=== PATIENT | female | born 1990 ===

== ENCOUNTER → 2017-03-19 | Outpatient (CLI) | payer OTHER ==
[~2017-03-19] MED LIST: ACET325 PO; AMOX500 PO; IBUP800 PO; Keflex500 MG PO; OMEP20ER PO; OMEPRAZOLE MAGN20 MG PO; ONDA4 PO; PROM25 PO; Pepcid20 MG PO; Prednisone20 MG PO; Protonix40 MG PO; VICODIN 5-3001 EACH PO; Zofran Odt4 MG SL; Zofran Odt8 MG SL
== END ==
LOC: LAB 16:48
DX: Z36.85 Encounter for antenatal screening for Streptococcus B (principal)
CPT/HCPCS: 87081; 87653

== ENCOUNTER 2017-04-03 09:10 | Inpatient (IN) | payer OTHER ==
[~2017-04-03] VITALS: Ht 160 cm; Wt 81.7 kg
[~2017-04-03 09:10] MED LIST changes: -IBUP800 PO; -Zofran Odt8 MG SL
[2017-04-03 09:45] LABS: BASOPHILS ABSOLUTE AUTO 0.03 K/mm3 (0.00-0.23); BASOPHILS PERCENT AUTO 0 % (0-2); EOSINOPHILS ABSOLUTE AUTO 0.13 K/mm3 (0.00-0.68); EOSINOPHILS PERCENT AUTO 2 % (0-6); Hematocrit 35.9 % (33.0-51.0); Hemoglobin 12.3 g/dL (11.5-16.0); IMMATURE GRAN ABSOLUTE AUTO 0.03 K/mm3 (0.00-0.10); IMMATURE GRAN PERCENT AUTO 0 % (0-1); LYMPHOCYTES ABSOLUTE AUTO 1.93 K/mm3 (0.84-5.20); LYMPHOCYTES PERCENT AUTO 23 % (21-46); MONOCYTES ABSOLUTE AUTO 0.46 K/mm3 (0.16-1.47); MONOCYTES PERCENT AUTO 6 % (4-13); Mean Corpuscular HGB 30.1 pg (26.0-34.0); Mean Corpuscular HGB Conc 34.3 g/dL (31.5-36.5); Mean Corpuscular Volume 88 fL (80-100); Mean Platelet Volume 10.7 fL (9.1-12.4); NEUTROPHILS ABSOLUTE AUTO 5.83 K/mm3 (1.96-9.15); NEUTROPHILS PERCENT AUTO 69 % (41-73); Platelet Count 154 K/mm3 (150-400); RDW Coefficient Variation 13.2 % (11.7-14.2); RDW Standard Deviation 41.9 fL (35.1-46.3); Red Blood Cell Count 4.08 M/mm3 (3.80-5.20); White Blood Cell Count 8.41 K/mm3 (4.00-11.30)
[2017-04-04 04:56] LABS: BASOPHILS ABSOLUTE AUTO 0.02 K/mm3 (0.00-0.23); BASOPHILS PERCENT AUTO 0 % (0-2); EOSINOPHILS ABSOLUTE AUTO 0.05 K/mm3 (0.00-0.68); EOSINOPHILS PERCENT AUTO 1 % (0-6); Hematocrit 31.8 % (33.0-51.0); Hemoglobin 10.5 g/dL (11.5-16.0); IMMATURE GRAN ABSOLUTE AUTO 0.03 K/mm3 (0.00-0.10); IMMATURE GRAN PERCENT AUTO 0 % (0-1); LYMPHOCYTES ABSOLUTE AUTO 1.65 K/mm3 (0.84-5.20); LYMPHOCYTES PERCENT AUTO 18 % (21-46); MONOCYTES ABSOLUTE AUTO 0.59 K/mm3 (0.16-1.47); MONOCYTES PERCENT AUTO 7 % (4-13); Mean Corpuscular HGB 29.8 pg (26.0-34.0); Mean Corpuscular Volume 90 fL (80-100); Mean Platelet Volume 10.7 fL (9.1-12.4); NEUTROPHILS ABSOLUTE AUTO 6.71 K/mm3 (1.96-9.15); NEUTROPHILS PERCENT AUTO 74 % (41-73); Platelet Count 150 K/mm3 (150-400); RDW Coefficient Variation 13.1 % (11.7-14.2); RDW Standard Deviation 42.2 fL (35.1-46.3); Red Blood Cell Count 3.52 M/mm3 (3.80-5.20); White Blood Cell Count 9.05 K/mm3 (4.00-11.30)
[2017-04-04] MEDS ORDERED: IBUP800 PO (18:17)
[2018-02-15] MEDS ORDERED: Protonix40 MG PO (21:13)
[2018-02-15] MEDS ORDERED: Zofran Odt8 MG SL (21:13)
== END 2017-04-04 19:25 | disposition home or self-care (01) | DRG 775 ==
LOC: OBS 09:10 → BC 09:12 → OBS 09:25 → BC 09:27
PROVIDERS: Registered Nurse Community Health
PROC: 10E0XZZ Delivery of Products of Conception, External Approach (ICD-10-PCS; principal; 2017-04-03)
DX: O80 Encounter for full-term uncomplicated delivery (principal); Z37.0 Single live birth; Z3A.38 38 weeks gestation of pregnancy
CPT/HCPCS: 36415; 85025; J1885; J2590; J3010; J7120

== ENCOUNTER 2018-11-13 19:24 | Emergency (ER) | payer OTHER ==
[~2018-11-13] VITALS: Ht 160 cm; Wt 85.3 kg
[~2018-11-13 19:24] MED LIST changes: +IBUP800 PO; +Zofran Odt8 MG SL
[2018-11-13] MEDS ORDERED: IBU800 MG PO (21:09)
== END 2018-11-13 21:33 | disposition home or self-care (01) ==
LOC: ER 19:24
DX: R09.1 Pleurisy (principal); R07.81 Pleurodynia; Z87.891 Personal history of nicotine dependence; Z79.899 Other long term (current) drug therapy
CPT/HCPCS: 71046; 71260; 80048; 85025; 85379; 96374-59; 99283-25; J1885; Q9967

== ENCOUNTER 2018-11-23 13:28 | Emergency (ER) | payer OTHER ==
[~2018-11-23] VITALS: Ht 160 cm; Wt 85.3 kg
[~2018-11-23 13:28] MED LIST changes: +IBU800 MG PO
[2018-11-23] MEDS ORDERED: PAPAYA100 MG (13:44)
[2018-11-23 14:27] LABS: BASOPHILS ABSOLUTE AUTO 0.02 K/mm3 (0.00-0.23); BASOPHILS PERCENT AUTO 0 % (0-2); EOSINOPHILS ABSOLUTE AUTO 0.14 K/mm3 (0.00-0.68); EOSINOPHILS PERCENT AUTO 2 % (0-6); Hematocrit 40.1 % (33.0-51.0); Hemoglobin 13.2 g/dL (11.5-16.0); IMMATURE GRAN ABSOLUTE AUTO 0.02 K/mm3 (0.00-0.10); IMMATURE GRAN PERCENT AUTO 0 % (0-1); LYMPHOCYTES ABSOLUTE AUTO 1.67 K/mm3 (0.84-5.20); LYMPHOCYTES PERCENT AUTO 25 % (21-46); MONOCYTES ABSOLUTE AUTO 0.27 K/mm3 (0.16-1.47); MONOCYTES PERCENT AUTO 4 % (4-13); Mean Corpuscular HGB 29.1 pg (26.0-34.0); Mean Corpuscular HGB Conc 32.9 g/dL (31.5-36.5); Mean Corpuscular Volume 88 fL (80-100); Mean Platelet Volume 9.8 fL (9.1-12.4); NEUTROPHILS ABSOLUTE AUTO 4.64 K/mm3 (1.96-9.15); NEUTROPHILS PERCENT AUTO 69 % (41-73); Platelet Count 293 K/mm3 (150-400); RDW Coefficient Variation 12.5 % (11.7-14.2); RDW Standard Deviation 40.7 fL (35.1-46.3); Red Blood Cell Count 4.54 M/mm3 (3.80-5.20); White Blood Cell Count 6.76 K/mm3 (4.00-11.30)
[2018-11-23 14:46] LABS: Source, Urine Clean Catch
[2018-11-23 14:54] LABS: Alanine Aminotransfer (ALT/SGP 25 U/L (12-78); Albumin, Blood 3.9 g/dL (3.4-5.0); Alk Phos 42 U/L (50-136); Anion Gap 10 mmol/L (6-16); Aspartate Aminotrans (AST/SGOT 21 U/L (12-37); Bilirubin, Total 0.2 mg/dL (0.1-1.0); Blood Urea Nitrogen 14 mg/dL (8-24); Bun/Creatinine Ratio 24.3 (12.0-20.0); CO2, Blood 23 mmol/L (21-32); Calcium, Blood 8.6 mg/dL (8.5-10.1); Chloride, Blood 108 mmol/L (98-108); Creatinine, Blood 0.58 mg/dL (0.40-1.00); Globulin, Blood 4.1 g/dL (2.2-4.0); Glomerular Filtration Rate >60 (60-); Glucose, Blood 90 mg/dL (70-99); Potassium, Blood 4.4 mmol/L (3.5-5.5); Sodium, Blood 141 mmol/L (136-145)
[2018-11-23 14:56] LABS: Bilirubin, Urine Neg (Neg); Blood, Urine 5+ (Neg); Glucose Qualitative, Urine Neg (Neg); Ketones, Urine Neg (Neg); Leukocyte Esterase, Urine 1+ (Neg); Nitrite, Urine Neg (Neg); Protein, Urine Neg (Neg); Specific Gravity, Urine 1.005 (1.003-1.022); Urobilinogen, Urine NORM (Normal)
[2018-11-23 15:03] LABS: Appearance, Urine Clear (Clear); Color, Urine Yellow (P-Yellow)
[2018-11-23 15:04] LABS: Bacteria Few /hpf; Squamous Epithelial Cells Few /hpf (Few)
[2018-11-23] MEDS ORDERED: PROM25 PO (17:37)
== END 2018-11-23 19:16 | disposition home or self-care (01) ==
LOC: ER 13:28
PROVIDERS: Physician Assistant
DX: R10.13 Epigastric pain (principal); R11.2 Nausea with vomiting, unspecified; F17.210 Nicotine dependence, cigarettes, uncomplicated
CPT/HCPCS: 36415; 76705; 80053; 81001; 83690; 85025; 86850; 86900; 86901; 87086; 96361; 96374; 96375; 96376; 99284-25; C9113; J1170; J2405; J2550; J3010; J7120

== ENCOUNTER 2019-05-18 04:30 | Emergency (ER) | payer OTHER ==
[~2019-05-18] VITALS: Ht 160 cm; Wt 88.5 kg
[~2019-05-18 04:30] MED LIST changes: +IBUP600 PO; +PAPAYA100 MG; +Robaxin-750750 MG PO
[2019-05-18 05:23] LABS: BASOPHILS ABSOLUTE AUTO 0.02 K/mm3 (0.00-0.23); BASOPHILS PERCENT AUTO 0 % (0-2); EOSINOPHILS ABSOLUTE AUTO 0.11 K/mm3 (0.00-0.68); EOSINOPHILS PERCENT AUTO 1 % (0-6); Hematocrit 40.6 % (33.0-51.0); Hemoglobin 13.7 g/dL (11.5-16.0); IMMATURE GRAN ABSOLUTE AUTO 0.01 K/mm3 (0.00-0.10); IMMATURE GRAN PERCENT AUTO 0 % (0-1); LYMPHOCYTES ABSOLUTE AUTO 2.04 K/mm3 (0.84-5.20); LYMPHOCYTES PERCENT AUTO 25 % (21-46); MONOCYTES ABSOLUTE AUTO 0.47 K/mm3 (0.16-1.47); MONOCYTES PERCENT AUTO 6 % (4-13); Mean Corpuscular HGB 29.8 pg (26.0-34.0); Mean Corpuscular HGB Conc 33.7 g/dL (31.5-36.5); Mean Corpuscular Volume 89 fL (80-100); Mean Platelet Volume 9.9 fL (9.1-12.4); NEUTROPHILS ABSOLUTE AUTO 5.61 K/mm3 (1.96-9.15); NEUTROPHILS PERCENT AUTO 68 % (41-73); Platelet Count 259 K/mm3 (150-400); RDW Coefficient Variation 12.7 % (11.7-14.2); RDW Standard Deviation 41.6 fL (35.1-46.3); Red Blood Cell Count 4.59 M/mm3 (3.80-5.20); White Blood Cell Count 8.26 K/mm3 (4.00-11.30)
[2019-05-18 05:27] LABS: Alanine Aminotransfer (ALT/SGP 23 U/L (12-78); Albumin, Blood 4.2 g/dL (3.4-5.0); Albumin/Globulin Ratio 1.1 (0.8-1.8); Alk Phos 59 U/L (50-136); Anion Gap 7 mmol/L (6-16); Aspartate Aminotrans (AST/SGOT 18 U/L (12-37); Bilirubin, Total 0.4 mg/dL (0.1-1.0); Blood Urea Nitrogen 12 mg/dL (8-24); Bun/Creatinine Ratio 19.4 (12.0-20.0); CO2, Blood 26 mmol/L (21-32); Chloride, Blood 108 mmol/L (98-108); Creatinine, Blood 0.62 mg/dL (0.40-1.00); Globulin, Blood 3.8 g/dL (2.2-4.0); Glomerular Filtration Rate >60 (60-); Glucose, Blood 93 mg/dL (70-99); Potassium, Blood 3.9 mmol/L (3.5-5.5); Sodium, Blood 141 mmol/L (136-145); Troponin I <0.015 ng/mL (0.000-0.040)
== END 2019-05-18 07:04 | disposition home or self-care (01) ==
LOC: ER 04:30
PROVIDERS: Emergency Medicine
DX: R07.9 Chest pain, unspecified (principal); G43.909 Migraine, unspecified, not intractable, without status migrainosus; F17.210 Nicotine dependence, cigarettes, uncomplicated; Z79.899 Other long term (current) drug therapy
CPT/HCPCS: 36415; 71046; 80053; 83690; 84484; 85025; 85379; 93005; 93010; J1885; J2405

== ENCOUNTER 2021-01-27 09:01 | Emergency (ER) | payer OTHER ==
[~2021-01-27] VITALS: Ht 160 cm; Wt 88.5 kg
[~2021-01-27 09:01] MED LIST changes: +EMTRICITABINE-1 EAC1 PO; +RALT400 PO; +Vibramycin100 MG PO
[2021-01-27] MEDS ORDERED: SERT50 PO (09:55)
[2021-01-27 10:35] LABS: Source, Urine Clean Catch
[2021-01-27 10:45] LABS: Bilirubin, Urine Neg (Neg); Blood, Urine 3+ (Neg); Glucose Qualitative, Urine Neg (Neg); Ketones, Urine Neg (Neg); Leukocyte Esterase, Urine 1+ (Neg); Nitrite, Urine Neg (Neg); Protein, Urine 1+ (Neg); Urobilinogen, Urine NORM (Normal)
[2021-01-27 10:55] LABS: Appearance, Urine Hazy (Clear); Color, Urine Yellow (P-Yellow)
[2021-01-27 10:56] LABS: Bacteria Few /hpf; Mucus Light (0-Heavy); Squamous Epithelial Cells Few /hpf (Few)
[2021-01-27 11:01] LABS: U Amphetamine Screen Not Detected; U Barbituate Screen Not Detected; U Benzodiazapine Screen Not Detected; U Buprenorphine Screen Not Detected; U Cannabinoids Screen DETECTED; U Cocaine Screen Not Detected; U Methadone Screen Not Detected; U Methamphetamine Screen Not Detected; U Opiates Screen Not Detected; U Oxycodone Screen Not Detected; U Phencyclidine Screen Not Detected; U Propoxyphene Screen Not Detected
[2021-01-27 11:09] LABS: BASOPHILS ABSOLUTE AUTO 0.03 K/mm3 (0.00-0.23); BASOPHILS PERCENT AUTO 0 % (0-2); EOSINOPHILS ABSOLUTE AUTO 0.13 K/mm3 (0.00-0.68); EOSINOPHILS PERCENT AUTO 1 % (0-6); Hemoglobin 13.4 g/dL (11.5-16.0); IMMATURE GRAN ABSOLUTE AUTO 0.04 K/mm3 (0.00-0.10); IMMATURE GRAN PERCENT AUTO 0 % (0-1); LYMPHOCYTES PERCENT AUTO 24 % (21-46); MONOCYTES PERCENT AUTO 7 % (4-13); Mean Corpuscular HGB 29.5 pg (26.0-34.0); Mean Corpuscular HGB Conc 33.5 g/dL (31.5-36.5); Mean Corpuscular Volume 88 fL (80-100); Mean Platelet Volume 9.7 fL (9.1-12.4); NEUTROPHILS ABSOLUTE AUTO 6.18 K/mm3 (1.96-9.15); NEUTROPHILS PERCENT AUTO 67 % (41-73); Platelet Count 242 K/mm3 (150-400); RDW Coefficient Variation 12.9 % (11.7-14.2); Red Blood Cell Count 4.54 M/mm3 (3.80-5.20); White Blood Cell Count 9.18 K/mm3 (4.00-11.30)
[2021-01-27 11:31] LABS: Alanine Aminotransfer (ALT/SGP 32 U/L (12-78); Albumin, Blood 3.9 g/dL (3.4-5.0); Albumin/Globulin Ratio 1.1 (0.8-1.8); Alk Phos 68 U/L (50-136); Anion Gap 7 mmol/L (6-16); Aspartate Aminotrans (AST/SGOT 21 U/L (12-37); Bilirubin, Total 0.2 mg/dL (0.1-1.0); Blood Urea Nitrogen 11 mg/dL (8-24); Bun/Creatinine Ratio 19.4 (12.0-20.0); CO2, Blood 25 mmol/L (21-32); Calcium, Blood 8.9 mg/dL (8.5-10.1); Chloride, Blood 108 mmol/L (98-108); Creatinine, Blood 0.57 mg/dL (0.40-1.00); Ethanol (Alcohol), Blood, Med 39 mg/dL; Globulin, Blood 3.7 g/dL (2.2-4.0); Glomerular Filtration Rate >60 (60-); Glucose, Blood 100 mg/dL (70-99); Potassium, Blood 3.7 mmol/L (3.5-5.5); Salicylate 2.6 mg/dL (2.8-20.0); Sodium, Blood 140 mmol/L (136-145); Total Protein, Blood 7.6 g/dL (6.4-8.2)
[2021-01-27 11:34] LABS: Acetaminophen, Random <2.0 ug/mL (10.0-30.0)
[2021-01-27] MEDS ORDERED: HYDHCL25 PO (14:05)
[2021-01-27] MEDS ORDERED: SERT100 PO (14:05)
[2021-01-27 14:29] LABS: Influenza A, PCR NEGATIVE (NEGATIVE); Influenza B, PCR NEGATIVE (NEGATIVE); Resp Syncytial Virus, PCR NEGATIVE (NEGATIVE); SARS-Cov-2 (COVID-19) PCR, MMC NEGATIVE (NEGATIVE)
== END 2021-01-27 14:50 | disposition home or self-care (01) ==
LOC: ER 09:01
PROVIDERS: Physician Assistant; Student in an Organized Health Care Education/Training Program
DX: F32.A Depression, unspecified (principal); F41.9 Anxiety disorder, unspecified; Z79.899 Other long term (current) drug therapy; G43.909 Migraine, unspecified, not intractable, without status migrainosus; F17.200 Nicotine dependence, unspecified, uncomplicated
CPT/HCPCS: 0241U; 36415; 80053; 81001; 81025; 85025; 87086; 99285; A9270; G0480

== ENCOUNTER 2021-10-12 16:46 | Emergency (ER) | payer OTHER ==
[~2021-10-12] VITALS: Ht 160 cm; Wt 88.5 kg
[~2021-10-12 16:46] MED LIST changes: +HYDHCL25 PO; +SERT100 PO; +SERT50 PO
== END 2021-10-12 20:34 | disposition home or self-care (01) ==
LOC: ER 16:46
DX: R51.9 Headache, unspecified (principal); Z79.899 Other long term (current) drug therapy
CPT/HCPCS: 81025; J1200; J1885; J2765; J7120

== ENCOUNTER 2022-02-26 07:06 | Emergency (ER) | payer OTHER ==
[~2022-02-26] VITALS: Ht 160 cm; Wt 90.7 kg
== END 2022-02-26 09:17 | disposition home or self-care (01) ==
LOC: ER 07:06
DX: S63.502A Unspecified sprain of left wrist, initial encounter (principal); X50.0XXA Overexertion from strenuous movement or load, initial encounter; F17.210 Nicotine dependence, cigarettes, uncomplicated
CPT/HCPCS: 73110; A9270; J1885

== ENCOUNTER → 2024-01-05 | Outpatient (CLI) | payer OTHER | LOC: LAB SHORT 15:08 → LAB 15:08 | DX: Z32.01 Encounter for pregnancy test, result positive (principal) | CPT/HCPCS: 84702 ==

== ENCOUNTER → 2024-07-29 | Outpatient (CLI) | payer OTHER | LOC: LAB SHORT 10:00 → LAB 10:00 | DX: R32 Unspecified urinary incontinence (principal) | CPT/HCPCS: 87086 ==

== ENCOUNTER 2024-11-02 16:31 | Inpatient (IN) | payer OTHER ==
[~2024-11-02] VITALS: Ht 160 cm; Wt 98.3 kg
[2024-11-02 17:43] LABS: BASOPHILS ABSOLUTE AUTO 0.02 K/mm3 (0.00-0.23); BASOPHILS PERCENT AUTO 0 % (0-2); EOSINOPHILS ABSOLUTE AUTO 0.12 K/mm3 (0.00-0.68); EOSINOPHILS PERCENT AUTO 1 % (0-6); Hematocrit 43.0 % (33.0-51.0); Hemoglobin 14.6 g/dL (11.5-16.0); IMMATURE GRAN ABSOLUTE AUTO 0.04 K/mm3 (0.00-0.10); IMMATURE GRAN PERCENT AUTO 0 % (0-1); LYMPHOCYTES ABSOLUTE AUTO 2.24 K/mm3 (0.84-5.20); LYMPHOCYTES PERCENT AUTO 20 % (21-46); MONOCYTES ABSOLUTE AUTO 0.54 K/mm3 (0.16-1.47); MONOCYTES PERCENT AUTO 5 % (4-13); Mean Corpuscular HGB Conc 34.0 g/dL (31.5-36.5); Mean Corpuscular Volume 89 fL (80-100); NEUTROPHILS ABSOLUTE AUTO 8.40 K/mm3 (1.96-9.15); NEUTROPHILS PERCENT AUTO 74 % (41-73); NRBC ABSOLUTE 0.00 K/mm3 (0.00-0.02); NRBC Auto 0.0 /100 WBC (0.0-0.2); Platelet Count 287 K/mm3 (150-400); RDW Coefficient Variation 13.1 % (11.7-14.2); RDW Standard Deviation 42.5 fL (35.1-46.3)
[2024-11-02 18:04] LABS: Alanine Aminotransfer (ALT/SGP 52.0 U/L (12-78); Albumin, Blood 4.2 g/dL (3.4-5.0); Albumin/Globulin Ratio 1.0 (0.8-1.8); Anion Gap 10.0 mmol/L (3-11); Aspartate Aminotrans (AST/SGOT 54.0 U/L (12-37); Bilirubin, Total 0.5 mg/dL (0.1-1.0); Blood Urea Nitrogen 10.0 mg/dL (8-24); CO2, Blood 25.0 mmol/L (21-32); Calcium, Blood 9.9 mg/dL (8.5-10.1); Chloride, Blood 107.0 mmol/L (98-108); Creatinine, Blood 1.0 mg/dL (0.40-1.00); Globulin, Blood 4.2 g/dL (2.2-4.0); Glucose, Blood 112.0 mg/dL (70-99); Magnesium, Blood 2.0 mg/dL (1.6-2.4); Phosphorus, Blood 2.4 mg/dL (2.5-4.9); Potassium, Blood 3.8 mmol/L (3.5-5.5); Sodium, Blood 138.0 mmol/L (136-145); Total Protein, Blood 8.4 g/dL (6.4-8.2)
[2024-11-02] MEDS ORDERED: HYDROcodone 5-APAP 325 TAB PO ONE (20:50)
[2024-11-02] MEDS ORDERED: FentaNYL Citrate 50 MCG/ML 2 ML Injection IV ONE (21:55)
[2024-11-02] MEDS ORDERED: PREG50 PO (22:20)
[2024-11-02] MEDS ORDERED: Naltrexone HCl50 MG PO (22:20)
[2024-11-02] MEDS ORDERED: VRAYLAR1.5 MG PO (22:20)
[2024-11-03 02:44] VITALS: BP 126/89
[2024-11-03] MEDS ORDERED: NS 1,000 ML IV SCH (03:15)
[2024-11-03] MEDS ORDERED: Ondansetron HCl 2 MG / ML 2ML Vial IV PRN (03:15)
[2024-11-03] MEDS ORDERED: OxyCODONE 5 mg/Acetamin 325 mg TABLET PO PRN ×2 (03:30→03:45)
--- NOTE | 2024-11-03 04:30 | NUR ---
PATIENT ARRIVED TO FLOOR TRANSFERED TO BED WITH ASSIST. WOUND ON RIGHT FOOT DRESSED REST OF SKIN CDI WITH SUNBURN. PATIENT STATES SHE IS UNABLE TO BEAR WEIGHT ON THE RIGHT SIDE OR MOVE RIGHT FOOT DUE TO WEAKNESS. LIMITED MOVEMENT AND WEIGH BEARING ON THE LEFT. NUMBNESS/TINGLING TO BLATERAL LOWER EXTEMITIES, AND TO BILATERAL FINGERTIPS. C/O OF NEW ONSET OF URINARY RETENTION ABLE TO VOID WITHIN THE LAST 2 HRS. C/O OF CONSTIPATION. C/O PAIN PRNS GIVEN.
[2024-11-03 04:53] LABS: BASOPHILS ABSOLUTE AUTO 0.03 K/mm3 (0.00-0.23); BASOPHILS PERCENT AUTO 0 % (0-2); EOSINOPHILS ABSOLUTE AUTO 0.18 K/mm3 (0.00-0.68); EOSINOPHILS PERCENT AUTO 2 % (0-6); Hematocrit 38.2 % (33.0-51.0); Hemoglobin 12.7 g/dL (11.5-16.0); IMMATURE GRAN ABSOLUTE AUTO 0.03 K/mm3 (0.00-0.10); IMMATURE GRAN PERCENT AUTO 0 % (0-1); LYMPHOCYTES ABSOLUTE AUTO 2.90 K/mm3 (0.84-5.20); LYMPHOCYTES PERCENT AUTO 26 % (21-46); MONOCYTES ABSOLUTE AUTO 0.75 K/mm3 (0.16-1.47); MONOCYTES PERCENT AUTO 7 % (4-13); Mean Corpuscular HGB Conc 33.2 g/dL (31.5-36.5); Mean Corpuscular Volume 91 fL (80-100); NEUTROPHILS ABSOLUTE AUTO 7.31 K/mm3 (1.96-9.15); NEUTROPHILS PERCENT AUTO 65 % (41-73); NRBC ABSOLUTE 0.00 K/mm3 (0.00-0.02); NRBC Auto 0.0 /100 WBC (0.0-0.2); Platelet Count 230 K/mm3 (150-400); RDW Coefficient Variation 13.2 % (11.7-14.2); RDW Standard Deviation 43.4 fL (35.1-46.3)
[2024-11-03 05:26] LABS: Alanine Aminotransfer (ALT/SGP 43.0 U/L (12-78); Albumin, Blood 3.7 g/dL (3.4-5.0); Albumin/Globulin Ratio 1.1 (0.8-1.8); Anion Gap 8.0 mmol/L (3-11); Aspartate Aminotrans (AST/SGOT 38.0 U/L (12-37); Bilirubin, Total 0.5 mg/dL (0.1-1.0); Blood Urea Nitrogen 10.0 mg/dL (8-24); CO2, Blood 24.0 mmol/L (21-32); Calcium, Blood 8.7 mg/dL (8.5-10.1); Chloride, Blood 106.0 mmol/L (98-108); Creatinine, Blood 0.62 mg/dL (0.40-1.00); Globulin, Blood 3.5 g/dL (2.2-4.0); Glucose, Blood 103.0 mg/dL (70-99); Potassium, Blood 3.4 mmol/L (3.5-5.5); Sodium, Blood 135.0 mmol/L (136-145); Total Protein, Blood 7.2 g/dL (6.4-8.2)
[2024-11-03 07:15] VITALS: BP 116/79
[2024-11-03] MEDS ORDERED: Enoxaparin 40 MG/0.4 ML SYR SC SCH (09:00)
[2024-11-03] MEDS ORDERED: HYDHCL25 PO (09:36)
[2024-11-03] MEDS ORDERED: BUSP10 PO (10:39)
[2024-11-03 13:47] LABS: U Cannabinoids Screen DETECTED; U Cocaine Screen DETECTED
[2024-11-03 13:48] LABS: U Amphetamine Screen Not Detected; U Barbituate Screen Not Detected; U Benzodiazapine Screen DETECTED; U Methadone Screen Not Detected; U Methamphetamine Screen Not Detected; U Opiates Screen DETECTED; U Oxycodone Screen DETECTED; U Phencyclidine Screen Not Detected
[2024-11-03 13:49] LABS: U Buprenorphine Screen Not Detected
--- NOTE | 2024-11-03 16:42 | NUR ---
SHIFT SUMMARY PT AOX4, COOPERATIVE, ABLE TO MAKE NEEDS KNOWN. PT IS IND IN ROOM PER [employer] SALES REPRESENTATIVE. WOUND CARE ADDRESSED. PT DOES HAVE COMPLAINTS OF PAIN, MEDICATING PER EMAR. PT HAD MRI TODAY, RESULTS IN CHART WELL URINE TOX SCREEN. BED IN LOWEST POSITION, CALL LIGHT WITHINI REACH.
[2024-11-03 16:44] VITALS: BP 128/87
[2024-11-03 19:31] VITALS: BP 131/90
[2024-11-04 04:48] VITALS: BP 129/90
[2024-11-04 04:58] LABS: Anion Gap 8.0 mmol/L (3-11); Blood Urea Nitrogen 8.0 mg/dL (8-24); CO2, Blood 26.0 mmol/L (21-32); Calcium, Blood 8.5 mg/dL (8.5-10.1); Chloride, Blood 107.0 mmol/L (98-108); Creatinine, Blood 0.71 mg/dL (0.40-1.00); Glucose, Blood 103.0 mg/dL (70-99); Potassium, Blood 4.2 mmol/L (3.5-5.5); Sodium, Blood 137.0 mmol/L (136-145)
[2024-11-04 07:30] VITALS: BP 134/96
--- NOTE | 2024-11-04 10:45 | NUR ---
pt sitting in bed holding her head, states she has a bad h/a, closed her blinds gave her an ice pack, and medicated per mar, pt is a/ox4, pleasant and cooperative with care, follows commands well, lungs are clear t/o, resp even and unlabored, no cough noted, hrr, trace edema noted to b/l le, ppp+2, cap refill<3 sec, vs stable, afebrile, btx4, abd flat soft nontender, states she's voiding without diff, and reg bm's, skin c/w/d, can move feet but states it really hurts the right one to move it, can feel touch on both legs, but just as pressure, states she's numb from chest down, benjamín, call light in reach.
[2024-11-04 13:05] LABS: Prothrombin Time Results 11.1 Sec (9.7-11.5)
[2024-11-04 16:48] LABS: RBC Count, CSF 0 /mm3 (0-0); WBC Count, CSF 3 /mm3 (0-5)
[2024-11-04 17:13] VITALS: BP 141/76
[2024-11-04 17:23] LABS: Haemophilus Influenza Not Detected (NOT DETECT)
--- NOTE | 2024-11-04 19:17 | NUR ---
changed dressing on foot, did have some s/s drainage, wound appears clean, had a spinal tap today, medicated twice for pain, no further changes this shift. call light in reach.
[2024-11-04 19:44] VITALS: BP 135/87
[2024-11-05 02:19] VITALS: BP 127/88
--- NOTE | 2024-11-05 05:45 | NUR ---
SHIFT SUMMARY; PATIENT SLEPT IN LONG INTERVALS. MEDICATED X 1 FOR LEG PAINS. ALSO HAD SPINAL HEADCHE WHEN SHE STOOD UP. VSS. TOE DESSING CD&I
[2024-11-05 08:12] VITALS: BP 134/96
--- NOTE | 2024-11-05 09:00 | NUR ---
pt laying in bed in tears from severe h/a, states it's at the top of her head throbbing, percocets given, ice pack given, a/ox4, pleasant and cooperative with care, follows commands well, lungs are clear t/o, resp even and unlabored, no cough noted hrr, no edema noted, ppp+2, cap refill<3 sec, vs stable, afebrile, piv to lac, site is clear and patent, btx4, reports voids without diff, no bm since being here, skin has wound to right foot with dressing intact, has bandaid to mid back from spinal, no drainage, moves arms well, right leg is weak, benjamín, call light in reach.
[2024-11-05] MEDS ORDERED: Ketorolac Tromethamine 30mg Vial IV ONE (09:25)
--- NOTE | 2024-11-05 10:38 | NUR ---
reports no effect from the percocet, called Dr. Camp recieved orders for toradol, this was effetive, pain down to 3/10. states she feels much better. call light in reach.
[2024-11-05 16:03] VITALS: BP 143/106
[2024-11-08 18:59] LABS: ALBUMIN INDEX 4.7 ratio (0.0-9.0); ALBUMIN,CSF 17 mg/dL (0-35); ALBUMIN,SERUM 3648 mg/dL (3500-5200); CSF IGG SYNTHESIS RATE 20.7 mg/d (<=8.0); CSF IGG/ALBUMIN RATIO 0.38 ratio (0.09-0.25); CSF OLIGOCLONAL BANDS Positive (Negative); IGG INDEX 1.73 ratio (0.28-0.66); IMMUNOGLOBULIN G CSF 6.4 mg/dL (0.0-6.0); OLIGOCLONAL BANDS NUMBER,CSF 21 Bands (0-1)
== END 2024-11-05 16:27 | disposition home or self-care (01) | DRG 556 ==
LOC: ER 16:31 → ERHOLD 16:32 → MEDS 16:32
PROVIDERS: Family Medicine; Nurse Practitioner Acute Care; Student in an Organized Health Care Education/Training Program; ADMIT Internal Medicine
DX: M62.81 Muscle weakness (generalized) (principal); E87.1 Hypo-osmolality and hyponatremia; G35 Multiple sclerosis; S90.411A Abrasion, right great toe, initial encounter; G89.29 Other chronic pain; R44.9 Unspecified symptoms and signs involving general sensations and perceptions; G43.909 Migraine, unspecified, not intractable, without status migrainosus; L55.9 Sunburn, unspecified; F32.A Depression, unspecified; F17.210 Nicotine dependence, cigarettes, uncomplicated; E87.6 Hypokalemia; E66.9 Obesity, unspecified; H53.8 Other visual disturbances; Z68.37 Body mass index [BMI] 37.0-37.9, adult; Z88.8 Allergy status to other drugs, medicaments and biological substances; Z91.51 Personal history of suicidal behavior; Z86.19 Personal history of other infectious and parasitic diseases; Z79.899 Other long term (current) drug therapy; Z98.890 Other specified postprocedural states
CPT/HCPCS: 36415; 70551; 70552; 72141; 72142; 72146; 72148; 80048; 80053; 82040; 82042; 82784; 82945; 83036; 83735; 83916; 84100; 84157; 85025; 85610; 85730; 87070; 87205; 87483; 89051; 94762; 96361; 96372-59; 96374; 96375; 97110; 97116; 97162; 99285-25; A9270; A9579; G0378; J1650; J1885; J3010; J7030

== ENCOUNTER 2025-03-09 20:11 | Observation (INO) | payer OTHER ==
[~2025-03-09] VITALS: Ht 160 cm; Wt 96.7 kg
[~2025-03-09 20:11] MED LIST changes: +BUSP10 PO; +Naltrexone HCl50 MG PO; +PREG50 PO; +VRAYLAR1.5 MG PO
[2025-03-09 21:22] LABS: BASOPHILS ABSOLUTE AUTO 0.02 K/mm3 (0.00-0.23); BASOPHILS PERCENT AUTO 0 % (0-2); EOSINOPHILS ABSOLUTE AUTO 0.13 K/mm3 (0.00-0.68); EOSINOPHILS PERCENT AUTO 2 % (0-6); Hematocrit 41.5 % (33.0-51.0); Hemoglobin 14.0 g/dL (11.5-16.0); IMMATURE GRAN ABSOLUTE AUTO 0.01 K/mm3 (0.00-0.10); IMMATURE GRAN PERCENT AUTO 0 % (0-1); LYMPHOCYTES ABSOLUTE AUTO 2.79 K/mm3 (0.84-5.20); LYMPHOCYTES PERCENT AUTO 44 % (21-46); MONOCYTES ABSOLUTE AUTO 0.31 K/mm3 (0.16-1.47); MONOCYTES PERCENT AUTO 5 % (4-13); Mean Corpuscular HGB Conc 33.7 g/dL (31.5-36.5); Mean Corpuscular Volume 89 fL (80-100); NEUTROPHILS ABSOLUTE AUTO 3.04 K/mm3 (1.96-9.15); NEUTROPHILS PERCENT AUTO 48 % (41-73); NRBC ABSOLUTE 0.00 K/mm3 (0.00-0.02); NRBC Auto 0.0 /100 WBC (0.0-0.2); Platelet Count 273 K/mm3 (150-400); RDW Coefficient Variation 12.4 % (11.7-14.2); RDW Standard Deviation 40.5 fL (35.1-46.3)
[2025-03-09 21:35] LABS: Alanine Aminotransfer (ALT/SGP 54.0 U/L (12-78); Albumin, Blood 3.9 g/dL (3.4-5.0); Albumin/Globulin Ratio 1.0 (0.8-1.8); Anion Gap 11.0 mmol/L (3-11); Aspartate Aminotrans (AST/SGOT 42.0 U/L (12-37); Bilirubin, Total 0.2 mg/dL (0.1-1.0); Blood Urea Nitrogen 7.0 mg/dL (8-24); CO2, Blood 23.0 mmol/L (21-32); Calcium, Blood 9.1 mg/dL (8.5-10.1); Chloride, Blood 111.0 mmol/L (98-108); Creatinine, Blood 0.56 mg/dL (0.40-1.00); Globulin, Blood 4.0 g/dL (2.2-4.0); Glucose, Blood 84.0 mg/dL (70-99); Potassium, Blood 3.5 mmol/L (3.5-5.5); Sodium, Blood 141.0 mmol/L (136-145); Total Protein, Blood 7.9 g/dL (6.4-8.2)
[2025-03-09 23:06] LABS: Prothrombin Time Results 11.6 Sec (9.7-11.5)
[2025-03-09] MEDS ORDERED: HYDROmorphone HCl/Pf 1MG SYR IV ONE (23:35)
[2025-03-10] MEDS ORDERED: HYDROmorphone HCl/Pf 1MG SYR IV ONE (00:25)
[2025-03-10] MEDS ORDERED: Ondansetron HCl 2 MG / ML 2ML Vial IV PRN (00:25)
[2025-03-10] MEDS ORDERED: Naloxone HCl 0.4MG / ML 1ML Vial IV PRN (00:25)
[2025-03-10] MEDS ORDERED: HYDROmorphone HCl/Pf 1MG SYR IV PRN (00:30)
[2025-03-10] MEDS ORDERED: Ketorolac Tromethamine 15mg Vial IV PRN (00:40)
[2025-03-10] MEDS ORDERED: FLU VACC TS2025-26(6MOS UP)/PF 45 MCG/0.5 ML SYRINGE IM SCH (00:45)
[2025-03-10 01:50] VITALS: BP 122/91
[2025-03-10] MEDS ORDERED: CRANBERRY215 MG PO (01:51)
[2025-03-10] MEDS ORDERED: VITAMIN B12500 MCG PO (01:52)
[2025-03-10] MEDS ORDERED: VITAMIN D310 MC4 PO (01:53)
[2025-03-10] MEDS ORDERED: MULTI-VITAMIN1 EAC2 PO (01:53)
[2025-03-10 05:05] LABS: Alanine Aminotransfer (ALT/SGP 60.0 U/L (12-78); Albumin, Blood 3.9 g/dL (3.4-5.0); Albumin/Globulin Ratio 1.0 (0.8-1.8); Anion Gap 10.0 mmol/L (3-11); Aspartate Aminotrans (AST/SGOT 69.0 U/L (12-37); Bilirubin, Total 0.4 mg/dL (0.1-1.0); Blood Urea Nitrogen 9.0 mg/dL (8-24); CO2, Blood 22.0 mmol/L (21-32); Calcium, Blood 8.8 mg/dL (8.5-10.1); Chloride, Blood 109.0 mmol/L (98-108); Creatinine, Blood 0.38 mg/dL (0.40-1.00); Globulin, Blood 4.0 g/dL (2.2-4.0); Glucose, Blood 82.0 mg/dL (70-99); Magnesium, Blood 2.0 mg/dL (1.6-2.4); Potassium, Blood 4.8 mmol/L (3.5-5.5); Sodium, Blood 136.0 mmol/L (136-145); Total Protein, Blood 7.9 g/dL (6.4-8.2)
--- NOTE | 2025-03-10 05:07 | NUR ---
CALL TO HCP/UNCONTROLLED PAIN PER HCP OK TO ADD OXYCODONE 5-10MG Q4 PRN FOR PAIN. ORDER ENTERED.
[2025-03-10 05:54] LABS: BASOPHILS ABSOLUTE AUTO 0.04 K/mm3 (0.00-0.23); BASOPHILS PERCENT AUTO 0 % (0-2); EOSINOPHILS ABSOLUTE AUTO 0.17 K/mm3 (0.00-0.68); EOSINOPHILS PERCENT AUTO 2 % (0-6); Hematocrit 43.2 % (33.0-51.0); Hemoglobin 14.5 g/dL (11.5-16.0); IMMATURE GRAN ABSOLUTE AUTO 0.02 K/mm3 (0.00-0.10); IMMATURE GRAN PERCENT AUTO 0 % (0-1); LYMPHOCYTES ABSOLUTE AUTO 3.23 K/mm3 (0.84-5.20); LYMPHOCYTES PERCENT AUTO 31 % (21-46); MONOCYTES ABSOLUTE AUTO 0.60 K/mm3 (0.16-1.47); MONOCYTES PERCENT AUTO 6 % (4-13); Mean Corpuscular HGB Conc 33.6 g/dL (31.5-36.5); Mean Corpuscular Volume 89 fL (80-100); NEUTROPHILS ABSOLUTE AUTO 6.37 K/mm3 (1.96-9.15); NEUTROPHILS PERCENT AUTO 61 % (41-73); NRBC ABSOLUTE 0.00 K/mm3 (0.00-0.02); NRBC Auto 0.0 /100 WBC (0.0-0.2); Platelet Count 263 K/mm3 (150-400); RDW Coefficient Variation 12.6 % (11.7-14.2); RDW Standard Deviation 41.3 fL (35.1-46.3)
--- NOTE | 2025-03-10 06:28 | NUR ---
Shift Summary- - Events: New admission. Pain was initially uncontrolled. HCP contacted for an oral pain reliever between IV doses. Patient rested once medicated. MRI pending for today. - Orientation: A/Ox4; appeared painful and anxious. - Safety: Fall risk; bed alarm is active. - Ambulation: Stand and pivot; [id number] lift. - Medication: Taken whole with water. - Toileting: Purewick used for incontinence, retention, and mobility. Last BM on 03/07/25
[2025-03-10] MEDS ORDERED: NEXPLANON68 MG (06:39)
[2025-03-10 07:29] VITALS: BP 109/76
[2025-03-10] MEDS ORDERED: Enoxaparin 40 MG/0.4 ML SYR SC SCH (09:00)
[2025-03-10 16:19] VITALS: BP 103/54
[2025-03-10 19:51] VITALS: BP 130/80
[2025-03-11 04:31] VITALS: BP 116/77
[2025-03-11 04:40] LABS: BASOPHILS ABSOLUTE AUTO 0.01 K/mm3 (0.00-0.23); BASOPHILS PERCENT AUTO 0 % (0-2); EOSINOPHILS ABSOLUTE AUTO 0.18 K/mm3 (0.00-0.68); EOSINOPHILS PERCENT AUTO 3 % (0-6); Hematocrit 43.6 % (33.0-51.0); Hemoglobin 14.8 g/dL (11.5-16.0); IMMATURE GRAN ABSOLUTE AUTO 0.01 K/mm3 (0.00-0.10); IMMATURE GRAN PERCENT AUTO 0 % (0-1); LYMPHOCYTES ABSOLUTE AUTO 2.31 K/mm3 (0.84-5.20); LYMPHOCYTES PERCENT AUTO 38 % (21-46); MONOCYTES ABSOLUTE AUTO 0.32 K/mm3 (0.16-1.47); MONOCYTES PERCENT AUTO 5 % (4-13); Mean Corpuscular HGB Conc 33.9 g/dL (31.5-36.5); Mean Corpuscular Volume 90 fL (80-100); NEUTROPHILS ABSOLUTE AUTO 3.24 K/mm3 (1.96-9.15); NEUTROPHILS PERCENT AUTO 53 % (41-73); NRBC ABSOLUTE 0.00 K/mm3 (0.00-0.02); NRBC Auto 0.0 /100 WBC (0.0-0.2); Platelet Count 214 K/mm3 (150-400); RDW Coefficient Variation 12.1 % (11.7-14.2); RDW Standard Deviation 39.9 fL (35.1-46.3)
[2025-03-11 05:12] LABS: Alanine Aminotransfer (ALT/SGP 62.0 U/L (12-78); Albumin, Blood 3.8 g/dL (3.4-5.0); Albumin/Globulin Ratio 0.9 (0.8-1.8); Anion Gap 10.0 mmol/L (3-11); Aspartate Aminotrans (AST/SGOT 47.0 U/L (12-37); Bilirubin, Total 0.6 mg/dL (0.1-1.0); Blood Urea Nitrogen 13.0 mg/dL (8-24); CO2, Blood 26.0 mmol/L (21-32); Calcium, Blood 9.4 mg/dL (8.5-10.1); Chloride, Blood 106.0 mmol/L (98-108); Creatinine, Blood 0.71 mg/dL (0.40-1.00); Globulin, Blood 4.1 g/dL (2.2-4.0); Glucose, Blood 94.0 mg/dL (70-99); Magnesium, Blood 2.1 mg/dL (1.6-2.4); Phosphorus, Blood 3.5 mg/dL (2.5-4.9); Potassium, Blood 3.8 mmol/L (3.5-5.5); Sodium, Blood 138.0 mmol/L (136-145); Total Protein, Blood 7.9 g/dL (6.4-8.2)
--- NOTE | 2025-03-11 05:57 | NUR ---
SHIFT SUMMARY PATIENT ADMITTED FOR LOWER EXTREMITY WEAKNESS. PATIENT ALERT AND ORIENTED X4. PATIENT COMPLAINING OF NUMBNESS AND TINGLING FROM FEET TO ABDOMEN AND STARTING IN HANDS. PATIENT ONE PERSON STAND BY ASSIST TO BATHROOM. NO ACUTE OVERNIGHT EVENTS. BED RAILS UP X2. BED IN LOWEST POSITION FOR SAFETY. CALL LIGHT WITHIN REACH.
[2025-03-11 07:30] VITALS: BP 120/77
[2025-03-11] MEDS ORDERED: SENNA LAXATIVE8.6 MG PO (14:37)
[2025-03-11] MEDS ORDERED: HYDHCL25 PO (14:38)
[2025-03-11] MEDS ORDERED: OXYC5 PO (14:39)
[2025-03-11] MEDS ORDERED: RAYOS5 M1 PO (14:44)
--- NOTE | 2025-03-11 16:52 | NUR ---
DISCHARGE NOTE PT WAS EDUCATED ON DISCHARGE PACKET AND INSTRUCTIONS. HARD SCRIPT WAS PROVIDED TO PT FOR CONTROLLED SUBSTANCE. PT VERBALIZED UNDERSTANDING OF NEW PRESCRIPTIONS AND PREDNISONE REGIMEN. BOTH IV'S WERE REMOVED. PT ESCORTED DOWN VIA WHEELCHAIR AND FAMILY PICKED HER UP. TO FOLLOW UP WITH PCP AND NUEROLOGIST. NO NEW QUESTIONS AT DISCHARGE.
== END 2025-03-11 16:55 | disposition home health service (06) ==
LOC: ER 20:11 → MEDS 20:12
PROVIDERS: Emergency Medicine; Family Medicine; ADMIT Student in an Organized Health Care Education/Training Program
DX: R53.1 Weakness (principal); R20.0 Anesthesia of skin; G43.909 Migraine, unspecified, not intractable, without status migrainosus; F17.200 Nicotine dependence, unspecified, uncomplicated; Z86.19 Personal history of other infectious and parasitic diseases; Z79.899 Other long term (current) drug therapy; Z88.8 Allergy status to other drugs, medicaments and biological substances
CPT/HCPCS: 36415; 70450; 70496; 70498; 71045; 72157; 72158; 80053; 82330; 83735; 84100; 84484; 85025; 85610; 85730; 93005; 93010; 94762; 96372; 96374; 96375; 96376; 97110; 97116; 97161; 99285-25; A9270; A9579; G0378; J1171; J1650; J1885; Q9967